=== PATIENT | female | born 1935 | race Caucasian/White ===

== ENCOUNTER 2022-07-12 14:54 | Outpatient (CLI) | payer MEDICARE | END 2022-07-12 14:55 | disposition home or self-care (01) | LOC: RAD 14:54 | PROVIDERS: ATTEND Internal Medicine Critical Care Medicine | DX: R06.00 Dyspnea, unspecified (principal) | CPT/HCPCS: 71046 ==

== ENCOUNTER 2024-09-25 16:18 | Outpatient (CLI) | payer MEDICARE | END 2024-09-25 16:19 | disposition home or self-care (01) | LOC: SCSRAD 16:18 | PROVIDERS: ATTEND Orthopaedic Surgery | DX: M54.50 Low back pain, unspecified (principal); M47.816 Spondylosis without myelopathy or radiculopathy, lumbar region; S32.011A Stable burst fracture of first lumbar vertebra, initial encounter for closed fracture; M41.9 Scoliosis, unspecified; Z98.890 Other specified postprocedural states | CPT/HCPCS: 72100 ==

== ENCOUNTER 2024-10-05 13:39 | Outpatient (CLI) | payer MEDICARE | END 2024-10-05 13:40 | disposition home or self-care (01) | LOC: SCSRAD 13:39 | PROVIDERS: ATTEND Orthopaedic Surgery | DX: M54.6 Pain in thoracic spine (principal); S32.019A Unspecified fracture of first lumbar vertebra, initial encounter for closed fracture; Z98.1 Arthrodesis status | CPT/HCPCS: 72070 ==